=== PATIENT | female | born 1975 | race Native Hawaiian/Other Pacific Islander ===

== ENCOUNTER 2024-10-03 16:53 | Emergency (ER) | payer BC, SELFPAY ==
[2024-10-03 16:54] VITALS: BMI 27.3
[2024-10-03 17:09] VITALS: BP 160/88; PULSE 98; RESP 19; TEMP 36.9; O2SAT 98
--- NOTE | 2024-10-03 17:21 | XR_ITS ---
Examination: Thoracolumbar spine 2 views Technique one AP lateral thoracolumbar spine 2 views Exam date and time: October 03, 2024 1729 hrs. Indications: Onset back pain today. Findings: Thoracolumbar levoscoliosis 11 degrees No cortical bone destruction Mild disc narrowing extending from T10 through L2 Mild to moderate lumbar spondylosis No acute vertebral body fracture No spondylolisthesis Impression: Thoracolumbar levoscoliosis 11 degrees Mild disc narrowing ascending from T10 through L2 Mild to moderate lumbar spondylosis
--- NOTE | 2024-10-03 17:21 | XR_ITS ---
Examination: PA lateral chest 2 views Technique: Upright PA lateral chest 2 views Exam date and time: October 03, 2024 at 1728 hrs. Comparison April 09, 2024 Indications: Chest pain today Findings: Atelectasis versus early pneumonia left base Normal heart size The osseous structures are intact Impression: Atelectasis versus early pneumonia left base, clinical correlation advised
--- NOTE | 2024-10-03 17:22 | PD.EDRME ---
Rapid Medical Screening Exam E Arrival date/time: 10/03/24 16:53 49-year-old female presents to the emergency department with complaints of back pain worsened with movement or deep inspiration. Reports she had a cough and every time she coughs her pain worsens. I have greeted and performed a focused initial assessment of this patient. Initial appropriate labs ordered at this time. A comprehensive ED assessment and evaluation of the patient and analysis of all test and completion of medical decision making process will be conducted by additional ED provider. Chief Complaint: Back Pain/Injury Time Seen by Provider: 10/03/24 16:58 Vital signs: Vital Signs Temperature 98.5 F 10/03/24 17:09 Pulse Rate 98 10/03/24 17:09 Respiratory Rate 19 10/03/24 17:09 Blood Pressure 160/88 H 10/03/24 17:09 Pulse Oximetry (%) 98 10/03/24 17:09 Oxygen Delivery Method Room Air 10/03/24 17:09
[2024-10-03] MEDS: ONDANSETRON INJ 2 MG/ML INJ 2 ML 4 MG IM (17:53)
[2024-10-03] MEDS: MORPHINE SULF INJ 10 MG/ML VIAL 5 MG IM (17:56)
--- NOTE | 2024-10-03 19:26 | EDNOTE_ITS ---
ED General RME/HPI General Chief complaint: Back Pain/Injury Stated complaint: UPPER BACK PAIN SINCE LAST NIGHT Time Seen by Provider: 10/03/24 16:58 Arrival date/time: 10/03/24 16:53 RME / HPI RME / HPI narrative: 49-year-old female patient with no significant medical history, except for hypertension came in for evaluation regarding left posterior chest wall, for the last few days, getting worse associated with worsening cough for the last 1 week. Denies any fever. Denies any other complaints. Pain is worse with coughing and deep breathing. Denies any trauma or fall. Related Data Home Medications ?Medication ?Instructions ?Recorded ?Confirmed omeprazole 20 mg capsule,delayed 20 mg PO QDAY ##0 05/31/16 10/10/21 release amlodipine 5 mg tablet 5 mg PO DAILY 10/10/21 10/10/21 losartan 100 mg tablet 100 mg PO DAILY 10/10/21 10/10/21 metformin 500 mg tablet 500 mg PO DAILY 10/10/21 10/10/21 simvastatin 10 mg tablet 10 mg PO DAILY 10/10/21 10/10/21 Previous Rx's ?Medication ?Instructions ?Recorded hydrocodone 5 mg-acetaminophen 325 1 tab PO BID PRN pain #10 tabs 10/18/21 mg tablet hydrocortisone acetate 25 mg 25 mg ID BID PRN hemorrhoids #24 ea 10/18/21 rectal suppository (Anusol-HC) albuterol sulfate 90 mcg/actuation 2 inh inhalation Q6H PRN shortness 10/03/24 breath activated powder inhaler of breath or wheezing #1 ea (ProAir RespiClick) amoxicillin 875 mg-potassium 1 tab PO BID #14 tabs 10/03/24 clavulanate 125 mg tablet azithromycin 250 mg tablet 250 mg PO QDAY 4 days #4 tabs 10/03/24 (Zithromax) ibuprofen 600 mg tablet 600 mg PO TID PRN pain #30 tabs 10/03/24 Allergies Allergy/AdvReac Type Severity Reaction Status Date / Time No Known Allergies Allergy Verified 10/03/24 16:59 Review of Systems Review of Systems Narrative Review of Systems: Review of system reviewed and within normal limits except mentioned in HPI ED Exam Narrative Physical exam: VITAL SIGNS: Reviewed. GENERAL APPEARANCE: Alert and interactive, follows commands, no acute distress, HEAD AND FACE: Non-traumatic. ENT: PERRL, pink conjunctivitis, eyelid no trauma, Mucous membrane moist. NECK: Supple, nontender, no nuchal rigidity. CHEST: No tenderness, no crepitus, no paradoxical movement, no retractions. LUNGS: Clear, well ventilated, symmetric, no rales, no wheezing, no ronchi, no stridor, good breath sounds bilaterally. HEART: Regular rate, regular rhythm, no murmur, no gallops. ABDOMEN: Soft, positive bowel sounds, nondistended, no guarding, nontender, no rebound, no masses, RECTAL: Deferred. GENITAL: Deferred. NEUROLOGICAL: Gross motor function intact sensory function intact, Appropriate for age. MUSCULOSKELETAL: low back nontender, full range of motion. EXTREMITIES: Nontender, full range of motion. SKIN: Color pink, dry, no rash, no lacerations, no abrasions, no contusions. LYMPHATICS: Deferred. Course Quality Measures none Orders Category Date Time Status XR chest 2V Stat Exams 10/03/24 17:21 Completed XR thoraco-lumbar 2V Stat Exams 10/03/24 17:21 Completed Amoxicillin/Pot Clav 875 [Augmentin 875] Med 10/03/24 19:20 Discontinued 1 tab PO X1 ONE Azithromycin Po [Zithromax PO] Med 10/03/24 19:20 Discontinued 500 mg PO X1 ONE Morphine Inj Med 10/03/24 17:20 Discontinued 5 mg IM X1 ONE Ondansetron Inj [Zofran Inj] Med 10/03/24 17:20 Discontinued 4 mg IM X1 ONE Vital Signs Vital signs: Vital Signs Temperature 98.5 F 10/03/24 17:09 Pulse Rate 98 10/03/24 17:09 Respiratory Rate 19 10/03/24 17:09 Blood Pressure 160/88 H 10/03/24 17:09 Pulse Oximetry (%) 98 10/03/24 17:09 Oxygen Delivery Method Room Air 10/03/24 17:09 [facility] Patient data External records reviewed:: None Clinical information provided by:: none Social determinants that could affect healthcare access:: none Patient has the following chronic illnesses:: Hypertension How is presenting disease/condition affected by chronic disease/condition?: uneffected by Evaluation data The following diagnostics were reviewed and interpreted by me:: radiology exam(s) Lab and/or radiology exams considered but not ordered:: None Interpretation Summary: Chest x-ray showed pneumonia. X-ray of the thoracolumbar spine showed no acute pathology except for degenerative disc disease. Medications Medications considered but not ordered:: None Medication administrations:: Medication Administration History Discontinued Medications Amoxicillin/Clavulanate Potassium (Amoxicillin/Pot Clav 875 Tablet) 1 tab PO X1 ONE Stop: 10/03/24 19:21 Azithromycin (Azithromycin 250 Mg Tablet) 500 mg PO X1 ONE Stop: 10/03/24 19:21 Morphine Sulfate (Morphine Sulf Inj 10 Mg/Ml Vial) 5 mg IM X1 ONE Stop: 10/03/24 17:21 Last Admin: 10/03/24 17:56 Dose: 5 mg Documented By: VICKI Ondansetron HCl (Ondansetron Inj 2 Mg/Ml Inj 2 Ml) 4 mg IM X1 ONE; Protocol Stop: 10/03/24 17:21 Last Admin: 10/03/24 17:53 Dose: 4 mg Documented By: VICKI Morphine Zofran Augmentin and Zithromax Consultations Consultation(s) initiated? (list below): No Diagnosis Differential Diagnosis ED Complaint MDM: Chest pain, pneumonia, atelectasis Most likely diagnosis given after review of the tests above:: Pneumonia Admission Indicated Admission indicated?: not indicated Explain why admission is indicated or not indicated:: Stable Admission Request Was there a request for admission?: No Disposition Plan Disposition Plan: Discharge Discharge Attestation Discharge Attestation: The patient and all family members were given an opportunity to ask questions and understood the discharge instructions. Discharge instructions specifically effects, indications for sooner follow up or return to the emergency department, and the expected course of current diagnosis. Patient condition: Stable Medical Decision Making MDM Narrative MDM Narrative: 49-year-old female patient with no significant medical history, except for hypertension came in for evaluation regarding left posterior chest wall, for the last few days, getting worse associated with worsening cough for the last 1 week. Denies any fever. Denies any other complaints. Pain is worse with coughing and deep breathing. Denies any trauma or fall. Chest x-ray showed pneumonia. Patient received morphine, Zofran, Augmentin and Zithromax p.o. Currently satting 98% on room air. Differential Diagnosis Differential Diagnosis: Chest pain, pneumonia, atelectasis Discharge Plan Plan Patient Disposition: HOME (Self Care) Prescriptions/Referrals Prescriptions/Med Rec: New amoxicillin-pot clavulanate 875-125 mg tablet 1 tab PO BID Qty: 14 0RF azithromycin [Zithromax] 250 mg tablet 250 mg PO QDAY 4 Days Qty: 4 0RF Rx Instructions: start on day 2 of therapy ProAir RespiClick 90 mcg/actuation aerosol powdr breath activated 2 inh inhalation Q6H PRN (Reason: shortness of breath or wheezing) Qty: 1 0RF ibuprofen 600 mg tablet 600 mg PO TID PRN (Reason: pain) Qty: 30 0RF No Action omeprazole 20 MG capsule,delayed release(DR/EC) 20 mg PO QDAY Qty: 0 metformin 500 mg tablet 500 mg PO DAILY simvastatin 10 mg tablet 10 mg PO DAILY amlodipine 5 mg tablet 5 mg PO DAILY losartan 100 mg tablet 100 mg PO DAILY hydrocortisone acetate [Anusol-HC] 25 mg suppository 25 mg ID BID PRN (Reason: hemorrhoids) Qty: 24 0RF hydrocodone-acetaminophen 5-325 mg tablet 1 tab PO BID MDD 10 PRN (Reason: pain) Qty: 10 0RF Referrals: Jerry Rendon MD [Primary Care Provider] - In 1 week Problem List Clinical Impression: Pneumonia Patient/Caregiver Discharge Instructions Discharge Activity: activity as tolerated Education Materials: What Is Pneumonia? Additional Instructions: Thank you for the opportunity for serving you today. You are stable for discharged . You are advised to: Follow-up with your PCP in 1 to 2 days Return to ED for worsening of symptoms Increase oral fluids Take medication as prescribed Print Language: Occitan Stand Alone Forms: Laar Award Info., Patient Portal Info Letter PA/TOREY Supervising Physician ALVARADO/TOREY Supervising Physician: MD Inez
[2024-10-03] MEDS: AZITHROMYCIN 250 MG TABLET 500 MG PO (19:40)
[2024-10-03] MEDS: AMOXICILLIN/POT CLAV 875 TABLET 1 TAB PO (19:40)
[2024-10-03 19:48] VITALS: BP 136/98; PULSE 88; RESP 18; TEMP 36.6; O2SAT 96
== END 2024-10-03 19:49 | disposition home or self-care (01) ==
PROVIDERS: Emergency Provider Emergency Medicine; PCP Family Medicine
DX: J18.9 Pneumonia, unspecified organism (principal); M51.34 Other intervertebral disc degeneration, thoracic region
CPT/HCPCS: 71046; 72080; 96372; 99284; J2270; J2405; A9270

== ENCOUNTER → 2025-04-17 | Outpatient (CLI) | payer OTHER, SELFPAY ==
[2025-04-17 08:41] LABS: Basophils # (Auto) 0.1 Thou/mm3 (0.0-0.2); Basophils % (Auto) 2 % (0-2.5); Eosinophils # (Auto) 0.2 Thou/mm3 (0.0-0.5); Eosinophils % (Auto) 3 % (0-10); Hematocrit 40.7 % (36.0-46.0); Hemoglobin 14.6 g/dL (12.0-16.0); Immature Granulocytes % (Auto) 0 % (0-0); Immature Granulocytes Auto 0.01 Thou/mm3 (0.00-0.00); Lymphocytes # (Auto) 2.4 Thou/mm3 (1.0-4.8); Lymphocytes % (Auto) 36 % (10-50); Mean Corpuscular HGB Conc 35.9 g/dl (31.0-37.0); Mean Corpuscular Volume 81 fL (80-100); Monocytes # (Auto) 0.4 Thou/mm3 (0.0-0.8); Monocytes % (Auto) 6 % (0-12); Neutrophils # (Auto) 3.6 Thou/mm3 (1.8-7.7); Neutrophils % (Auto) 54 % (37-80); Nucleated Red Blood Cell % 0 /100 WBC (0); Platelet Count 306 Thou/mm3 (140-440); RDW Standard Deviation 35.9 fL (36.4-46.3); Red Blood Count 5.03 Miln/mm3 (4.00-5.20); White Blood Count 6.7 Thou/mm3 (3.6-11.0)
[2025-04-17 08:58] LABS: Glucose Estimated Average 200 mg/dL (80-131); Hemoglobin A1C 8.6 % Hgb (4.8-6.0)
[2025-04-17 09:08] LABS: Alanine Aminotransferase 31 U/L (10-49); Albumin, Serum 4.5 gm/dL (3.5-5.0); Albumin/Globulin Ratio 1.7 (1.2-2.2); Alkaline Phosphatase 81 U/L (46-116); Anion Gap 16 (7-16); Aspartate Amino Transferase 26 U/L (0-34); BUN/Creatinine Ratio 14 Ratio (12-20); Bilirubin,Total 0.7 mg/dL (0.3-1.2); Blood Urea Nitrogen 10 mg/dL (9-23); Calcium 9.4 mg/dL (8.3-10.6); Calcium (Corrected) 9.4 mg/dL (8.5-10.1); Carbon Dioxide 22.9 mMol/L (20.0-31.0); Cardiac Risk Estimate 3.2 RATIO (3.7-5.6); Chloride 105 mMol/L (98-107); Cholesterol 137 mg/dL (132-200); Creatinine (Component) 0.7 mg/dL (0.6-1.3); Globulin 2.6 gm/dL (2.3-3.5); Glucose 159 mg/dL (74-106); HDL Cholesterol 43 mg/dL (40-60); LDL Cholesterol,Calculated 61 mg/dL (0-130); Osmolality,Calculated 288 (275-295); Potassium 3.7 mMol/L (3.4-5.1); Sodium 144 mMol/L (136-145); Total Protein 7.1 gm/dL (5.7-8.2); Triglycerides 166 mg/dL (30-150); eGFR > 60 See Note
== END | disposition home or self-care (01) ==
LOC: COPL 07:35
PROVIDERS: PCP Family Medicine; Referring Provider Family Medicine; Visit Provider Family Medicine
DX: E11.65 Type 2 diabetes mellitus with hyperglycemia (principal)
CPT/HCPCS: 36415; 80053; 80061; 83036; 85025